=== PATIENT | female | born 1975 | race Two or more races ===

== ENCOUNTER 2021-08-15 17:31 | Emergency (ER) | payer BC, OTHER ==
[~2021-08-15] VITALS: Ht 172.7 cm; Wt 81.6 kg
[~2021-08-15 17:31] MED LIST: NORPTMEDS PO; OMEP20CA74 OR
[2021-08-15] MEDS ORDERED: SODIUM CHLORIDE 0.9% 1,000 ML IV ONE (19:30)
[2021-08-15] MEDS ORDERED: fentaNYL CITRATE 100 MCG/2 ML VL IV ONE (19:30)
[2021-08-15] MEDS ORDERED: KETAMINE 50mg/ML 10ml Vial (500mg/10ml) IV ONE (22:15)
[2021-08-15 23:40] VITALS: BP 139/70
[2021-08-16] MEDS ORDERED: KETOROLAC TROMETH 30 MG/ML 1ML VIAL IV ONE (00:30)
[2021-08-16] MEDS ORDERED: HYDR-4902 PO (01:32)
== END 2021-08-16 02:28 | disposition home or self-care (01) ==
LOC: EDBD 17:31 → ER 17:31 → EDUNIT# 17:31 → ER 08-16 02:28
DX: S52.501A Unspecified fracture of the lower end of right radius, initial encounter for closed fracture (principal); S52.601A Unspecified fracture of lower end of right ulna, initial encounter for closed fracture; E78.5 Hyperlipidemia, unspecified; G43.909 Migraine, unspecified, not intractable, without status migrainosus; Z79.899 Other long term (current) drug therapy; Z90.49 Acquired absence of other specified parts of digestive tract; Z90.710 Acquired absence of both cervix and uterus; W18.39XA Other fall on same level, initial encounter; Y93.89 Activity, other specified; Y92.89 Other specified places as the place of occurrence of the external cause; Y99.8 Other external cause status
CPT/HCPCS: 25605; 73100; 93005; 96361; 96374; 99152; 99153; 99285; J3010; J7030